=== PATIENT | male | born 2000 | race Caucasian/White ===

== ENCOUNTER 2024-07-20 20:09 | Emergency (ER) | payer BC, OTHER, SELFPAY ==
[2024-07-20 20:18] VITALS: BP 119/79
--- NOTE | 2024-07-20 20:55 | ED.GENMED ---
History of Present Illness
General
Chief Complaint: Abdominal Symptoms
Source: patient and family
Exam Limitations: non verbal-adult and developmental stage
Time Seen by Provider: 07/20/24 20:32
Nursing documentation reviewed up to this point in time: agreed with
History of Present Illness
History of Present Illness:
23-year-old male 36-week twin with seizure disorder autism nonverbal graduated high school he is home with his parents now, for about 3 days he has had nausea vomiting and fevers, decreased p.o. intake usually drinks fluids pretty well not much of a
heavy eater, has been admitted to [facility] before for not taking enough fluids, recently diagnosed with a dental infection facial cellulitis treated with a sounds like an intramuscular shot of antibiotics with improvement of his symptoms, tonight
family noticed him vomiting a large amount of blackish material on the ground, no red or blood like material with her not sure if he is urinating much, they are not sure about his bowel movements as he is independent with toileting, has been taking
some showers to help soothe himself,
Past History
Past History
ED Past Medical History: Seizures and Other (Epilepsy, IDD, autism)
ED Past Surgical History: None
Social History
Tobacco: Non-smoker
Alcohol: None
Drug: None
Personal: Single
Living: with family
Employment: Not employed
Family History
Family History: Other (Twin brother with Asperger's my)
Review of Systems
Review of Systems
All Other Systems: Not applicable
Constitutional: Reports fever
EENT: Reports no symptoms
Respiratory: Denies trouble breathing
Cardiac: Reports no symptoms
ABD/GI: Reports vomiting; Denies abdominal pain
Phy Exam
Physical Exam
Physical Exam:
Physical Exam
General: 23-year-old male chronically ill-appearing, minimally verbal, looks pale
Neck: Lips are dry
Heart: s1/s2 regular rate and rhythm, no murmur. equal radial pulses.
Lungs: No wheeze
Abdomen: Soft mild distention no guarding or rebound, no hernias appreciated, he is circumcised, has no testicular swelling or masses
Neuro: Few words are clear moves all extremities
Skin: no rash
Psychiatric: Cooperative
Extremities: no edema.
Sepsis
Sepsis Screening
Sepsis Assessment: Sepsis Ruled Out
Sepsis Screen
Sepsis Screen: Sepsis Ruled Out
Date: 07/20/24
Time: 23:01
Course
Orders/Labs/Results
Orders:
Orders
07/20/24 20:47
0.9% Sodium Chloride 1000 ml [Nss] 1,000 ml IV BOLUS
Ondansetron Injectable [Zofran] 4 mg IV NOW STA
Pantoprazole [Protonix IV] 40 mg IV NOW STA
07/20/24 21:17
COVID-19 Antigen Urgent
Source: Nasal Swab
Complete Blood Count/With Diff Urgent
Comprehensive Metabolic Panel Urgent
Depakane Urgent
Lipase Urgent
Manual Differential Urgent
Blood Culture Urgent
WILLIAM Source: Blood/Venous
Specimen Description:
Influenza A+B Rapid Molecular Urgent
WILLIAM Source: Nasal Swab
Specimen Description:
07/20/24 21:48
Abdomen Xray - 1 View [CR Abdomen - 1 View] Urgent
Comment:
Reason For Exam: vomiting
Abnormal Lab Results
07/20/24
21:17
RBC 4.30 L 10^6/uL
(4.70-6.10)
Hgb 12.9 L g/dL
(13.0-18.0)
Hct 37.3 L %
(39.0-52.0)
RDW 16.4 H %
(11.5-14.5)
Lymphocytes (Manual) 18 L %
(20-51)
Monocytes (Manual) 26 H %
(2-9)
Lipase 19 L U/L
(23-300)
07/20/24 21:17
07/20/24 21:17
Vital Signs
Initial and Last Documented VS:
Initial Vital Signs
Pulse Resp BP Pulse Ox
98 20 119/79 98
07/20/24 20:18 07/20/24 20:18 07/20/24 20:18 07/20/24 20:18
Last Documented Vital Signs
Pulse Resp BP Pulse Ox
98 16 111/68 98
07/20/24 22:51 07/20/24 22:51 07/20/24 22:51 07/20/24 22:51
MDM/Problems Addressed
Differential Diagnosis Includes:
Viral syndrome, colitis, upper GI bleed, dehydration other
MDM/Problems Addressed:
Vomiting fever
Chronic conditions affecting care:
Mental illness autism seizure
Chronic conditions affecting care: Neurological disorder
Acute Exacerbation and/or Progression of Chronic Illness: Neurological disorder and Psychiatric illness
*Pulse Oximetry
Patient hypoxic: no
*Chain Saw Mechanic Interpretation
Rate: normal
Interpretation: normal
Heart Rate: 78
Rhythm: sinus
*Critical Care Note
Total Time (30-74mins, 75-104mins- exclusive of procedures): Not Applicable
Update Note
Update Note:
11 PM update after IV fluids Zofran and Protonix patient much improved, no further vomiting labs are noted x-ray noted no air-fluid levels, air near the rectum, his abdomen is soft without guarding or rebound reviewed with parents are comfortable
taking him home states he he will need here but he may take some fluids at home have Zofran at home apparently there is a GI bug going through their house, they were clearly instructed to return to the ER if worsening symptoms there is a blood
culture pending which we will follow-up on
ED Attending Note
-
Portions of this chart may have been created with voice recognition software.� Occasional wrong word or��sound alike� substitutions may have occurred due to the inherent limitations of voice recognition software.
Discharge Plan
Departure
Patient Disposition: Home (Routine Discharge)
Date of Disposition: 07/20/24
Time of Disposition: 23:00
Patient with high blood pressure during this ER visit?: No
Condition: Good
Discharge Problem:
Vomiting
Instructions: Nausea and Vomiting, Adult (DC)
Prescriptions:
New
ondansetron HCl 4 mg tablet
4 mg PO Q8H PRN (Reason: nausea and vomiting) Qty: 20 0RF
No Action
benztropine 0.5 mg tablet
1 mg PO BID
clonidine HCl 0.3 mg tablet
0.3 mg PO HS
clonazepam 1 mg tablet
1 mg PO BID
olanzapine 10 mg tablet
5 mg PO BID
sertraline 25 mg tablet
25 mg PO DAILY
mirtazapine 15 mg tablet
15 mg PO HS
divalproex 250 mg tablet extended release 24 hr
500 mg PO BID
cyanocobalamin (vitamin B-12) 1,000 mcg Tablet
1,000 mcg PO DAILY@1600
Theragen Tablet
1 tab PO BID
oxcarbazepine 300 mg tablet
600 mg PO BID
cholecalciferol (vitamin D3) [Vitamin D3] 25 mcg (1,000 unit) capsule
25 mcg PO DAILY
Referrals:
Gerard Posey III DO [Family Provider] -
Interventions
Interventions:
*Risk Screen - Suicide Last Done: 07/20/24 20:18
*General Assessment Last Done: 07/20/24 20:18
*Neglect/Abuse Screening Last Done: 07/20/24 20:18
*ED COVID-19 Vaccine History Last Done: 07/20/24 20:35
EJ-Awiwxi-Wreemfhrdt Assessment Last Done: 07/20/24 20:59
Discharge Date and Time
Print Language: ITALIAN
[2024-07-20] MEDS: NSS 1000 IV (21:25)
[2024-07-20] MEDS: ZOFRAN 4 MG IV (21:26)
[2024-07-20] MEDS: PROTONIX IV 40 MG IV (21:26)
[2024-07-20 21:39] LABS: Hematocrit 37.3 % (39.0-52.0); Hemoglobin 12.9 g/dL (13.0-18.0); Mean Corp Hgb Conc. 34.6 g/dL (33.0-37.0); Mean Corpuscular Volume 86.7 fL (80.0-94.0); Mean Platelet Volume 8.9 fL (7.4-10.4); Platelet Count 209 10^3/uL (130-400); Red Cell Dist. Width 16.4 % (11.5-14.5); White Blood Cell Count 5.9 10^3/uL (4.8-10.8)
[2024-07-20 21:48] LABS: ALT (SGPT) 10 U/L (0-50); AST (SGOT) 20 U/L (17-59); Albumin 3.8 g/dl (3.5-5.0); Alkaline Phosphatase 84 U/L (38-126); Blood Urea Nitrogen 19 mg/dl (9-20); Calcium 9.1 mg/dl (8.4-10.2); Carbon Dioxide 23 mmol/L (22-30); Chloride 103 mmol/L (98-107); Glucose 97 mg/dl (70-99); Lipase 19 U/L (23-300); Sodium 139 mmol/L (135-145); Total Bilirubin 0.7 mg/dl (0.2-1.3); Total Protein 6.4 g/dl (6.3-8.2); eGFR > 60.00
[2024-07-20 21:53] LABS: COVID-19 Antigen Negative (Negative); Depakane 54.3 ug/ml (50.0-120.0)
[2024-07-20 21:57] LABS: Absolute Neutrophils -Man Diff 3.3 10^3/uL (1.4-6.5); Band Neutrophils 3 % (0-3); Lymphocytes 18 % (20-51); Monocytes 26 % (2-9); Segmented Neutrophils 53 % (42-75); Vacuolated Segs 2+
[2024-07-20 21:58] LABS: Normal RBC Morphology Yes; Platelets Checked Yes; Total Cells Counted 100
[2024-07-20 22:51] VITALS: BP 111/68
== END 2024-07-20 23:31 | disposition home or self-care (01) ==
LOC: EMR 20:09
PROVIDERS: EMERGENCY PHYSICIAN Emergency Medicine; FAMILY PHYSICIAN Student in an Organized Health Care Education/Training Program
DX: R11.2 Nausea with vomiting, unspecified (principal); F84.0 Autistic disorder; G40.909 Epilepsy, unspecified, not intractable, without status epilepticus
CPT/HCPCS: 96374; 96375; 96361; 99284; 74018; 80053; 80164; 83690; 85025; 87040; 87502; 87811

== ENCOUNTER 2025-04-16 10:34 | Emergency (ER) | payer BC, OTHER, SELFPAY ==
[2025-04-16 10:53] VITALS: BP 124/84
[2025-04-16 13:07] VITALS: BMI 17.3
[2025-04-16] MEDS: VERSED 1 MG IV (13:12)
[2025-04-16 13:19] VITALS: BP 96/67
[2025-04-16 13:20] VITALS: BP 96/67
[2025-04-16 13:42] LABS: Hematocrit 29.7 % (39.0-52.0); Hemoglobin 9.9 g/dL (13.0-18.0); Mean Corp Hgb Conc. 33.3 g/dL (33.0-37.0); Mean Corpuscular Volume 89.2 fL (80.0-94.0); Red Cell Dist. Width 13.8 % (11.5-14.5)
[2025-04-16 13:46] LABS: Depakane 134.1 ug/ml (50.0-120.0)
[2025-04-16 14:00] VITALS: BP 94/65
[2025-04-16 14:03] LABS: ALT (SGPT) 11 U/L (0-50); AST (SGOT) 25 U/L (17-59); Albumin 3.7 g/dl (3.5-5.0); Alkaline Phosphatase 94 U/L (38-126); Blood Urea Nitrogen 7 mg/dl (9-20); Calcium 9.1 mg/dl (8.4-10.2); Carbon Dioxide 26 mmol/L (22-30); Chloride 107 mmol/L (98-107); Estimated Creatinine Clearance 85 ml/min; Glucose 90 mg/dl (70-99); Potassium 4.3 mmol/L (3.5-5.1); Sodium 137 mmol/L (135-145); Total Protein 6.1 g/dl (6.3-8.2); eGFR > 60.00
[2025-04-16 14:04] LABS: Nucleated Red Blood Cells % 0 % (-)
[2025-04-16 14:05] LABS: Platelet Count 68 10^3/uL (130-400)
--- NOTE | 2025-04-16 14:11 | ED.GENMED ---
History of Present Illness
<Sophie Akhtar DO, Resident - Last Filed: 04/18/25 02:23>
General
Chief Complaint: Eye Problems
Source: family
Exam Limitations: non verbal-adult
Time Seen by Provider: 04/16/25 12:04
Nursing documentation reviewed up to this point in time: agreed with
History of Present Illness
History of Present Illness:
Patient is a 24-year-old man past medical history of autism and seizures, presenting with eye irritation. Patient is nonverbal. Parents provided history. Patient has been treated for the last 8 weeks with cefdinir for sinus infection/facial
cellulitis. Patient has a history of a right sided tooth abscess, that will be extracted by an oral surgeon in May. Patient 10 days ago started to have worsening eye irritation, conjunctivitis, light sensitivity, tearing and weeping yellow
fluid. Mom says is also associated with increased fatigue, 6 pound weight loss, and a decrease in physical mobility. Parents are unsure if the mobility issues are associated with decrease in vision, or for the gross motor issue. Mom also notes
that patient has been experiencing incontinence recently.
Past History
<Sophie Akhtar DO, Resident - Last Filed: 04/18/25 02:23>
Past History
ED Past Medical History: Seizures and Other (Epilepsy, IDD, autism)
ED Past Surgical History: None
Social History
Tobacco: Non-smoker
Alcohol: None
Drug: None
Personal: Single
Living: with family
Employment: Not employed
Family History
Family History: Other (Twin brother with Asperger's my)
Review of Systems
<Sophie Akhtar DO, Resident - Last Filed: 04/18/25 02:23>
Review of Systems
Allergies reviewed?: Yes
All Other Systems: ROS reviewed and negative except as documented in HPI and ROS
Constitutional: Reports weight loss
EENT: Reports tearing and other (Eye irritation bilaterally)
Respiratory: Reports no symptoms
Cardiac: Reports no symptoms
ABD/GI: Reports vomiting
: Reports frequency and incontinence
Musculoskeletal: Reports other (Difficulty ambulating)
Skin: Reports no symptoms
Neurological: Reports other (Difficulty ambulating)
Endocrine: Reports no symptoms
Hematologic/Lymphatic: Reports no symptoms
Psychiatric: Reports no symptoms
Phy Exam
<Sophie Akhtar DO, Resident - Last Filed: 04/18/25 02:23>
General Physical Exam
General Presentation: mild distress
General age: appears younger than age
General Skin: warm and dry
General Habitus: cachetic
Eye Exam
Conjunctival Changes: bilateral: purulent discharge
Cardiovascular Exam
Cardiovascular Exam: regular rate/rhythm
Heart Sounds: normal
Pulmonary Exam
Pulmonary Exam: lungs clear and no respiratory distress
Gastrointestinal Exam
Gastrointestinal Exam: normal bowel sounds, non tender, soft and non distended
Neurological Exam
Neurological Exam: other (Patient nonverbal at baseline. Patient sitting up awake mildly responsive, follows limited commands. Keeps eyes closed.)
Musculoskeletal Exam
Musculoskeletal Exam: other (Patient ambulating well here)
Skin Exam
Skin Exam: normal color
Psychiatric Exam
Psychiatric Exam: other (Baseline mood and affect for this patient with autism)
Course
<Sophie Akhtar DO, Resident - Last Filed: 04/18/25 02:23>
Orders/Labs/Results
Orders:
Orders
04/16/25 13:03
Fluorescein Sodium [Ful-Krysten] 2 mg .ROUTE .STK-MED ONE
04/16/25 13:07
Complete Blood Count/With Diff Urgent
Comprehensive Metabolic Panel Urgent
Lamictal [Lamotrigine (Lamictal)] [S] Stat
Valproic Acid Level [Depakane] Stat
04/16/25 13:08
Midazolam HCl [Versed] 1 mg IV NOW STA
04/16/25 13:54
Midazolam HCl [Versed] 1 mg IV NOW STA
04/16/25 16:31
Add On- LAB Urgent
Tests Added?: oxcarbazepine
Abnormal Lab Results
04/16/25
13:07
RBC 3.33 L 10^6/uL
(4.70-6.10)
Hgb 9.9 L g/dL
(13.0-18.0)
Hct 29.7 L %
(39.0-52.0)
Plt Count 68 L 10^3/uL
(130-400)
MPV 11.5 H fL
(7.4-10.4)
Absolute Lymphs (auto) 0.7 L 10^3/uL
(1.2-3.4)
Absolute Monos (auto) 0.7 H 10^3/uL
(0.1-0.6)
Immature Gran % 0.7 H %
(0-0.5)
Lymphocytes % 13.3 L %
(20.5-51.1)
Monocytes % 12.8 H %
(1.7-9.3)
BUN 7 L mg/dl
(9-20)
Total Protein 6.1 L g/dl
(6.3-8.2)
Valproic Acid 134.1 H* ug/ml
(50.0-120.0)
04/16/25 13:07
04/16/25 13:07
Vital Signs
Initial and Last Documented VS:
Initial Vital Signs
Pulse Resp BP Pulse Ox
118 18 124/84 99
04/16/25 10:53 04/16/25 10:53 04/16/25 10:53 04/16/25 10:53
Last Documented Vital Signs
Temp Pulse Resp BP Pulse Ox
98.6 F 91 20 94/65 98
04/16/25 13:20 04/16/25 13:20 04/16/25 13:20 04/16/25 14:00 04/16/25 14:14
<Nick Shin MD - Last Filed: 04/16/25 15:07>
Orders/Labs/Results
Orders:
Orders
04/16/25 13:03
Fluorescein Sodium [Ful-Krysten] 2 mg .ROUTE .STK-MED ONE
04/16/25 13:07
Complete Blood Count/With Diff Urgent
Comprehensive Metabolic Panel Urgent
Lamictal [Lamotrigine (Lamictal)] [S] Stat
Valproic Acid Level [Depakane] Stat
04/16/25 13:08
Midazolam HCl [Versed] 1 mg IV NOW STA
04/16/25 13:54
Midazolam HCl [Versed] 1 mg IV NOW STA
04/16/25 16:31
Add On- LAB Urgent
Tests Added?: oxcarbazepine
Abnormal Lab Results
04/16/25
13:07
RBC 3.33 L 10^6/uL
(4.70-6.10)
Hgb 9.9 L g/dL
(13.0-18.0)
Hct 29.7 L %
(39.0-52.0)
Plt Count 68 L 10^3/uL
(130-400)
MPV 11.5 H fL
(7.4-10.4)
Absolute Lymphs (auto) 0.7 L 10^3/uL
(1.2-3.4)
Absolute Monos (auto) 0.7 H 10^3/uL
(0.1-0.6)
Immature Gran % 0.7 H %
(0-0.5)
Lymphocytes % 13.3 L %
(20.5-51.1)
Monocytes % 12.8 H %
(1.7-9.3)
BUN 7 L mg/dl
(9-20)
Total Protein 6.1 L g/dl
(6.3-8.2)
Valproic Acid 134.1 H* ug/ml
(50.0-120.0)
04/16/25 13:07
04/16/25 13:07
Vital Signs
Initial and Last Documented VS:
Initial Vital Signs
Pulse Resp BP Pulse Ox
118 18 124/84 99
04/16/25 10:53 04/16/25 10:53 04/16/25 10:53 04/16/25 10:53
Last Documented Vital Signs
Temp Pulse Resp BP Pulse Ox
98.6 F 91 20 94/65 98
04/16/25 13:20 04/16/25 13:20 04/16/25 13:20 04/16/25 14:00 04/16/25 14:14
<Sophie Akhtar DO, Resident - Last Filed: 04/18/25 02:23>
MDM/Problems Addressed
Differential Diagnosis Includes:
Keratitis, conjunctivitis, elevated Depakote level
MDM/Problems Addressed:
Blood work unremarkable. Depakote level elevated at 134.1. Reached out to [facility] to get an contact with his neurologist Dr. Carver, waiting for callback.
On fluorescein dye exam some irritation visualized in right eye, possibly keratitis. Will discuss with ophthalmology for medication recs.
Patient will receive Versed prior to scan for sedative purposes.
16: 00 patient will follow-up outpatient with neurology, hematology, ophthalmology on Friday. Will discharge patient with antibiotic and anti-viral eyedrops. Patient encouraged to come back with increased fever, swelling, facial pain
<Sophie Akhtar DO, Resident - Last Filed: 04/18/25 02:23>
*Pulse Oximetry
SaO2: 98
Oxygen Mode of Delivery: Room air
Patient hypoxic: no
*Critical Care Note
Total Time (30-74mins, 75-104mins- exclusive of procedures): Not Applicable
ED Attending Note
<Sophie Akhtar DO, Resident - Last Filed: 04/18/25 02:23>
-
Portions of this chart may have been created with voice recognition software.� Occasional wrong word or��sound alike� substitutions may have occurred due to the inherent limitations of voice recognition software.
<Nick Shin MD - Last Filed: 04/16/25 15:07>
ED Attending Note
Patient seen and examined by attending physician: Yes
I performed a history and physical exam of patient and discussed management with resident, I reviewed resident's note and agree with documented findings and plan of care.: Yes
ED Attending Note:
24-year-old male with a history of autism and seizures presents with bilateral eye irritation, weight loss, possible ongoing sinus infection and possible tooth infection. This has been going on for months. Has been on multiple doses of
antibiotics, mostly cephalosporins. He is currently on a cephalosporin at this time. No fever. Some intermittent vomiting. He is keeping his eyes closed frequently.
On exam patient with significant autism. He is nonverbal. He is relatively good and following simple commands. He will sit up open his mouth for you. His neck is supple. He did stand up and ambulate to the bathroom without issues. He was able
to walk on his own. He is in no respiratory distress. Regular rate and rhythm. Warm and dry. Perfusing well.
He frequently keeps his eyes closed and will not open them. After tetracaine to both eyes he would open them some and appeared more comfortable. There is diffuse conjunctival injection. Fluorescein was done to both eyes. Left is clear right has
some mild corneal uptake. Difficult to tell better than that. He has no obvious hyphema or hypopyon. His irises are normal and react normally. He is got no proptosis. He does not appear uncomfortable with eye motion.
Impression difficult to evaluate this autistic young gentleman. I do not feel at this time he has got an acute bacterial infectious issue. This appears to me to be primarily a local eye issue but would be reasonable to try antibiotic drops
anti-inflammatory drops and Optho follow-up. However family is convinced there is more going on. He is anemic. His platelet count is slightly low. His Depakote level is slightly elevated. We will CT his head his sinuses.
1500.... We discussed with the family. They are comfortable that his Depakote is the issue with his gait although he ambulated well here. We tried to contact his neurologist with no success. Offered admission and further evaluation for these
issues including the mild thrombocytopenia, elevated Depakote level and eye issues although given his autism would likely have issues in the hospital. I think it is very reasonable to follow-up closely for these issues. These have been ongoing
issues. He is not clinically septic or toxic or meningitic. There is no sign of cellulitis. There is no facial swelling no periorbital swelling his neck is supple he is afebrile warm and dry. Family is comfortable with outpatient management. I
did contact hematology will follow-up. Also left a message with ophthalmology. Will start antiviral and antibiotic drops for the eye, and given referral to hematology and ophthalmology follow-up follow-up. They will also follow-up with their
neurologist
Discharge Plan
Departure
Patient Disposition: Home (Routine Discharge)
Date of Disposition: 04/16/25
Time of Disposition: 15:54
Patient with high blood pressure during this ER visit?: No
Discharge Problem:
Possible Depakote toxicity, Bilateral conjunctival injection, Right eye keratitis, Thrombocytopenia/anemia
Instructions: How to Use Eye Drops
Prescriptions:
New
ofloxacin 0.3 % drops
1 drp ophthalmic (eye) QID 7 Days Qty: 10 0RF
trifluridine 1 % drops
1 drp ophthalmic (eye) Q4H 7 Days Qty: 7.5 0RF
No Action
benztropine 0.5 mg tablet
1 mg PO BID
clonidine HCl 0.3 mg tablet
0.3 mg PO HS
clonazepam 1 mg tablet
1 mg PO BID
olanzapine 10 mg tablet
5 mg PO BID
mirtazapine 15 mg tablet
22.5 mg PO HS
divalproex 250 mg tablet extended release 24 hr
500 mg PO BID
cyanocobalamin (vitamin B-12) 1,000 mcg Tablet
1,000 mcg PO DAILY@1600
oxcarbazepine 300 mg tablet
600 mg PO BID
cholecalciferol (vitamin D3) [Vitamin D3] 25 mcg (1,000 unit) capsule
25 mcg PO DAILY
Referrals:
Uziel Casey DO [Active, Hematology / Oncology] - Follow up in 5-7 days
Chriss Aragon MD [Active, Ophthalmology] - Follow up in 2-3 days
Gerard Posey III, DO [Family Provider, Pediatrics] - Follow up in 2-3 days
Activity Restrictions/Additional Instructions:
Use each eyedrop 4 times per day
Call the data developer first thing Friday for close follow-up. Also call the illusionist first thing Friday morning
Also call your neurologist first thing Friday. We are waiting for your Lamictal level.
Decrease your valproic acid dose
Return with any concerns including fever facial swelling headache worsening vomiting worsening lethargy or irritability or any other concerning symptom
Interventions
Interventions:
*Risk Screen - Suicide Last Done: 04/16/25 10:53
*General Assessment Last Done: 04/16/25 13:20
*Neglect/Abuse Screening Last Done: 04/16/25 10:53
*ED- Fall Risk Assessment Last Done: 04/16/25 13:20
*ED COVID-19 Vaccine History Last Done: 04/16/25 13:20
*Nursing Disposition Last Done: 04/16/25 15:59
Discharge Date and Time
Discharge Date/Time: 04/16/25 16:00
Print Language: PASHTO
== END 2025-04-16 16:00 | disposition home or self-care (01) ==
LOC: EMR 10:34
PROVIDERS: EMERGENCY PHYSICIAN Emergency Medicine; FAMILY PHYSICIAN Student in an Organized Health Care Education/Training Program
DX: H10.9 Unspecified conjunctivitis (principal); H16.9 Unspecified keratitis; D69.6 Thrombocytopenia, unspecified; D64.9 Anemia, unspecified; F84.0 Autistic disorder; G40.909 Epilepsy, unspecified, not intractable, without status epilepticus; F79 Unspecified intellectual disabilities
CPT/HCPCS: 99283; 96374; 80053; 80164; 80175; 85025